=== PATIENT | male | born 1985 | race Caucasian/White ===

== ENCOUNTER 2022-07-16 17:38 | Emergency (ER) | payer BC, OTHER ==
[~2022-07-16] VITALS: Ht 172.7 cm; Wt 94.4 kg
[2022-07-16] MEDS ORDERED: diphenhydrAMINE 50MG/ML VIAL IV ONE (19:20)
[2022-07-16] MEDS ORDERED: NS 1,000 ML IV ONE (19:20)
[2022-07-16] MEDS ORDERED: KETOROLAC 30 MG/ML 1ML VIAL IV ONE (19:20)
[2022-07-16] MEDS ORDERED: METOCLOPRAMIDE INJ 10MG/2ML VIAL IV ONE (19:20)
[2022-07-16 20:58] VITALS: BP 135/94
== END 2022-07-16 21:29 | disposition home or self-care (01) ==
LOC: M ED 17:38
DX: R51.9 Headache, unspecified (principal); R21 Rash and other nonspecific skin eruption
CPT/HCPCS: 70450; 87486; 87581; 87633; 87798; 96361; 96374; 96375; 99284; J1200; J1885; J2765